=== PATIENT | female | born 1980 | race African-American/Black ===

== ENCOUNTER 2020-12-13 | Emergency (ER) | payer SELFPAY ==
[2020-12-13 15:06] LABS: HEMATOCRIT 42.3 % (37.0-47.0); HEMOGLOBIN 14.4 g/dl (12.0-16.0); IMMATURE GRANULOCYTES 0.4 % (0.0-5.0); MEAN CELL VOLUME 103.2 fL CALC (80.0-100.0); MEAN CORPUSCULAR HGB 35.1 pG CALC (26.0-32.0); NEUT# 2.74 thou/uL (2.00-7.15); RED BLOOD COUNT 4.1 mill/uL (4.20-5.60); RED CELL DISTRI WIDTH 13.9 % (11.5-15.5)
[2020-12-13 15:23] LABS: ALBUMIN 4.6 g/dL (3.2-5.0); ALKALINE PHOSPHATASE 60 u/l (38-126); ANION GAP 12 (6-22 (CALC)); BILIRUBIN, TOTAL 1.2 mg/dL (0.0-1.4); BUN 15 mg/dL (7-17); BUN/CREATININE RATIO 20 (12-20 (CALC)); CARBON DIOXIDE 26 mmol/l (22-30); CHLORIDE 97 mmol/l (95-108); CREATININE 0.7 mg/dL (0.5-1.0); GFR > 60 ML/MIN (>=60 (CALC)); GFR FOR AFR.AMER. > 60 ML/MIN (>=60 (CALC)); LIPASE 48 u/l (23-300); POTASSIUM 3.6 mmol/l (3.5-5.1); SGOT/AST 24 u/l (14-36); SODIUM 132 mmol/l (137-146); TOTAL PROTEIN 8.4 g/dL (6.3-8.2)
[2020-12-13] MEDS ORDERED: ZOFRAN4 MG/TAB PO (17:23)
[2020-12-13 17:46] LABS: URINE BLOOD DIPSTICK NEGATIVE (NEGATIVE); URINE COLOR YELLOW; URINE GLUCOSE - DIPSTICK NEGATIVE (NEGATIVE); URINE KETONE 15 mg/dL (NEGATIVE); URINE LEUK ESTERASE NEGATIVE (NEGATIVE); URINE PH 5.5 (4.5-8.0); URINE PROTEIN - DIPSTICK NEGATIVE (NEG-TRACE)
[2020-12-13 17:53] LABS: URINE BILIRUBIN - DIPSTICK SMALL (NEGATIVE); URINE NITRITE - DIPSTICK NEGATIVE (Negative)
== END 2020-12-13 18:10 | disposition home or self-care (01) | DRG 866 ==
DX: B34.9 Viral infection, unspecified (principal); F17.210 Nicotine dependence, cigarettes, uncomplicated; Z20.822 Contact with and (suspected) exposure to COVID-19
CPT/HCPCS: Q9967

== ENCOUNTER 2021-03-03 19:46 | Emergency (ER) | payer SELFPAY ==
[~2021-03-03] VITALS: Ht 170.2 cm; Wt 54.0 kg
[~2021-03-03 19:46] MED LIST: ZOFRAN4 MG/TAB PO
[2021-03-03 20:00] VITALS: BP 110/74
[2021-03-03 21:29] LABS: HEMATOCRIT 41.8 % (37.0-47.0); HEMOGLOBIN 14.2 g/dl (12.0-16.0); NEUT# 2.12 thou/uL (2.00-7.15); RED BLOOD COUNT 4.06 mill/uL (4.20-5.60); RED CELL DISTRI WIDTH 13.3 % (11.5-15.5)
[2021-03-03 21:30] LABS: URINE BILIRUBIN - DIPSTICK NEGATIVE (NEGATIVE); URINE BLOOD DIPSTICK NEGATIVE (NEGATIVE); URINE COLOR YELLOW; URINE GLUCOSE - DIPSTICK NEGATIVE (NEGATIVE); URINE KETONE NEGATIVE (NEGATIVE); URINE LEUK ESTERASE TRACE (NEGATIVE); URINE PH 5.5 (4.5-8.0); URINE PROTEIN - DIPSTICK NEGATIVE (NEG-TRACE); URINE UROBILINOGEN - DIPSTICK 0.2 E.U./dL (0.2)
[2021-03-03 21:32] LABS: URINE NITRITE - DIPSTICK NEGATIVE (Negative)
[2021-03-03 21:40] LABS: ALBUMIN 4.8 g/dL (3.2-5.0); ALKALINE PHOSPHATASE 62 u/l (38-126); ANION GAP 18 (6-22 (CALC)); BILIRUBIN, TOTAL 0.5 mg/dL (0.0-1.4); BUN 9 mg/dL (7-17); BUN/CREATININE RATIO 14 (12-20 (CALC)); CARBON DIOXIDE 22 mmol/l (22-30); CHLORIDE 103 mmol/l (95-108); CREATININE 0.6 mg/dL (0.5-1.0); GFR > 60 ML/MIN (>=60 (CALC)); GFR FOR AFR.AMER. > 60 ML/MIN (>=60 (CALC)); POTASSIUM 3.9 mmol/l (3.5-5.1); SGOT/AST 31 u/l (14-36); SODIUM 139 mmol/l (137-146); TOTAL PROTEIN 8.6 g/dL (6.3-8.2)
[2021-03-03] MEDS ORDERED: MOTRIN800 MG PO (21:47)
== END 2021-03-03 22:07 | disposition home or self-care (01) | DRG 601 ==
LOC: ED 19:46
DX: N63.25 Unspecified lump in the left breast, overlapping quadrants (principal); F41.9 Anxiety disorder, unspecified; I10 Essential (primary) hypertension; F31.9 Bipolar disorder, unspecified; F17.200 Nicotine dependence, unspecified, uncomplicated; Z87.820 Personal history of traumatic brain injury

== ENCOUNTER 2021-03-08 10:44 | Observation (INO) | payer SELFPAY ==
[~2021-03-08] VITALS: Ht 170.2 cm; Wt 60.0 kg
[~2021-03-08 10:44] MED LIST changes: +MOTRIN800 MG PO
--- NOTE | 2021-03-08 10:45 | NUR ---
PATEINT TO ROOM VIA WHEELCHAIR AND PHYSICIAN NOTIFIED OF PATIENT STATUS
--- NOTE | 2021-03-08 11:05 | NUR ---
PT MD GOLDIE AT BEDSIDE, DENIES ANY ADDITIONAL NEEDS
[2021-03-08 12:23] LABS: IMMATURE GRANULOCYTES 0.3 % (0.0-5.0); MEAN CELL VOLUME 100.4 fL CALC (80.0-100.0); MEAN CORPUSCULAR HGB 35.1 pG CALC (26.0-32.0); MEAN CORPUSCULAR HGB CONC 34.9 g/dL CAL (32.0-36.0); NEUT# 3.41 thou/uL (2.00-7.15); RED BLOOD COUNT 4.96 mill/uL (4.20-5.60); RED CELL DISTRI WIDTH 12.9 % (11.5-15.5)
[2021-03-08 12:26] LABS: ALBUMIN 5.6 g/dL (3.2-5.0); ALKALINE PHOSPHATASE 86 u/l (38-126); AMYLASE 128 u/l (30-110); BUN 14 mg/dL (7-17); BUN/CREATININE RATIO 14 (12-20 (CALC)); CARBON DIOXIDE 20 mmol/l (22-30); GFR > 60 ML/MIN (>=60 (CALC)); GFR FOR AFR.AMER. > 60 ML/MIN (>=60 (CALC)); LIPASE 51 u/l (23-300); POTASSIUM 3.9 mmol/l (3.5-5.1); SGOT/AST 40 u/l (14-36); SODIUM 133 mmol/l (137-146)
[2021-03-08 12:27] LABS: HEMATOCRIT 49.8 % (37.0-47.0); HEMOGLOBIN 17.4 g/dl (12.0-16.0)
[2021-03-08 12:35] LABS: ANION GAP 29 (6-22 (CALC)); BILIRUBIN, TOTAL 1.6 mg/dL (0.0-1.4); CHLORIDE 88 mmol/l (95-108)
[2021-03-08 12:37] LABS: TOTAL PROTEIN 11.2 g/dL (6.3-8.2)
[2021-03-08 12:38] LABS: MYOGLOBIN 69 ng/mL (0 - 62)
--- NOTE | 2021-03-08 13:30 | NUR ---
PT TO RADIOLOGY FOR CT
[2021-03-08 13:49] LABS: URINE BLOOD DIPSTICK NEGATIVE (NEGATIVE); URINE COLOR YELLOW; URINE GLUCOSE - DIPSTICK NEGATIVE (NEGATIVE); URINE KETONE >=80 mg/dL (NEGATIVE); URINE LEUK ESTERASE NEGATIVE (NEGATIVE); URINE PROTEIN - DIPSTICK 30 mg/dL (NEG-TRACE); URINE SPECIFIC GRAVITY >=1.030; URINE UROBILINOGEN - DIPSTICK 0.2 E.U./dL (0.2)
[2021-03-08 13:50] LABS: URINE BILIRUBIN - DIPSTICK NEGATIVE (NEGATIVE); URINE NITRITE - DIPSTICK NEGATIVE (Negative)
[2021-03-08 13:57] LABS: URINE RBC 0-2 RBC/hpf (0-5); URINE SQUAMOUS EPITHELIAL CELL FEW EPI/hpf (0-FEW); URINE WBC 0-2 WBC/hpf (0-5)
--- NOTE | 2021-03-08 14:40 | NUR ---
IV INFUSING, PT SLEEPING
--- NOTE | 2021-03-08 15:25 | NUR ---
LAB AT BEDSIDE TO DRAW 2ND LACTIC
--- NOTE | 2021-03-08 19:51 | NUR ---
REPORT TO H[facility]ILTON DRIVER/MED-SURG.
--- NOTE | 2021-03-08 19:51 | NUR ---
TELEPHONE REPORT RECEIVED FROM Ramandeep MOSCOSO IN ED. ROOM 288 PREPARED TO RECEIVE PT BY Irineo WALKER CNA.
--- NOTE | 2021-03-08 20:00 | NUR ---
TO FLOOR WITH NURSE VIA W/C. WITH POCKET MONITOR
--- NOTE | 2021-03-08 20:09 | NUR ---
PT ARRIVES TO UNIT VIA WC, ACCOMPANIED BY Jose Roberto AGUIRRE LPN. ADMITTED TO ROOM 288.
[2021-03-08 20:15] VITALS: BP 132/88
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
--- NOTE | 2021-03-08 20:50 | NUR ---
ORDER FOR PRN XANAX AND MORPHINE RECEIVED FROM DR. MEJIA FOR PT'S C/O ANXIETY AND PAIN. SEE WRITTEN PHYSICAINS ORDERS IN CHART.
--- NOTE | 2021-03-08 21:50 | NUR ---
NEITHER R-FA 22G IV OR L-AC 22G IV ABLE TO BE FLUSHED. BOTH IV'S D/C'D. CATHETERS INTACT. NEW IV STARTED TO R-FA, #22g x1 ATTEMPT.
--- NOTE | 2021-03-08 21:55 | NUR ---
PRN XANAX AND MORPHINE ADMINISTERED PER PT'S REQUEST FOR C/O PAIN AND ANXIETY. VERBAL EDUCATION PROVIDED PRIOR TO ADMINISTRATION. PT VERBALIZES UNDERSTANDING. SEE E-MAR.
--- NOTE | 2021-03-09 00:10 | NUR ---
Monique GAITAN DIRECTOR CLINICAL RESEARCH IN ROOM COLLECTING BLOOD SPECIMEN.
--- NOTE | 2021-03-09 00:23 | NUR ---
PT APPEARS TO BE SLEEPING COMFORTABLY, LAYING IN BED, EYES CLOSED, RESPIRATIONS REGULAR AND UNLABORED. NO APPARENT DISTRESS. CALL LOPES REMAINS WITHIN REACH.
--- NOTE | 2021-03-09 01:02 | NUR ---
TROPONIN RESULTS RECEIVED AND ASSESED. TROPONIN <0.012ng/ml.
[2021-03-09 04:00] VITALS: BP 136/92
--- NOTE | 2021-03-09 04:16 | NUR ---
CALL RECEIVED FROM Esther JUAREZ IN ED REPORTING APPARENT SLIGHT ST ELEVATION ON TELEMETRY. PT'S ASSESMENT UNCHANGED. PRESENTS WITH ANXIETY AND C/O PAIN TO UPPER TEETH, MID STERNUM, AND LOWER ABD-FLANK. VSS.
--- NOTE | 2021-03-09 04:21 | NUR ---
EKG ORDERED, Jessica RAE PEDIATRIC ASSOCIATE MADE AWARE.
[2021-03-09 04:25] VITALS: BP 127/89
--- NOTE | 2021-03-09 04:31 | NUR ---
Angelina LAWS BRADDER IN ROOM DOING EKG, Monique GAITAN EXTERMINATOR HELPER TERMITE IN ROOM COLLECTING LABS.
--- NOTE | 2021-03-09 04:55 | NUR ---
PRN XANAX AND PRN MORPHINE ADMINISTERED FOR C/O PAIN AND ANXIETY. SEE E-MAR.
--- NOTE | 2021-03-09 05:07 | NUR ---
EKG REVIEWED BY DR. WIN, PER DR. WIN SLIGHT J POINT ELEVATION NOTED ON EKG. NO ST ELEVATION. NO FURTHER INTERVENTION NEEDED.
[2021-03-09 05:10] LABS: CHOLESTEROL HDL RATIO 3.4 (<4.4 (CALC)); MAGNESIUM 1.8 mg/dL (1.6-2.3)
--- NOTE | 2021-03-09 05:50 | NUR ---
TROPONIN RESULTS RECEIVED AND ASSESED. TROPONIN <0.012ng/ml.
[2021-03-09 07:15] VITALS: BP 106/71
--- NOTE | 2021-03-09 07:15 | NUR ---
PATIENT RESTING IN BED AT THIS TIME DENIES ANY NEEDS OR PAIN. RECORD PRESS SUPERVISOR DONE SEE INTERVENTIONS. LUNG LAUGHLIN ARE CLEAR. PATIENT STATED LAST BM WAS APPROX. 2 WEEKS BUT STATES "IT COULD HAVE BEEN SOONER THAN THAT" BOWEL SOUNDS PRESENT AND ACTIVE IN ALL FOUR QUADRANTS. PATIENT CALM AT THIS TIME AND STATES SHE HAS HAD "A LOT ON HER PLATE LATELY DUE TO HER COUSIN DYING". TELE MONITOR IN PLACE AND BEING MONITORED BY ED. SIDERAIL ARE UP CALL LIGHT WITHIN REACH.
[2021-03-09] MEDS ORDERED: ALPRAZOLAM1 MG PO ×2 (10:19→10:54)
[2021-03-09 10:36] VITALS: BP 100/61
--- NOTE | 2021-03-09 11:05 | NUR ---
PATIENT D/C AT THIS TIME. WHILE GOING OVER PATIENTS D/C PATIENT BECAME UPSET AND STARTED SHOUTING AT THIS NURSE STATING SHE DIDN'T WANT TO GO STATED SHE WANTED FOOD AND PATIENT WAS TOLD LUNCH WAS HERE AND SHE COULD EAT HER LUNCH AND WHEN FAMILY COMES WE WILL WHEEL HER DOWN. PATEINT CONTINUED TO SCREAM THAT "NOBODY GIVES A FUCK ABOUT HER" SHE CONTINUED TO RANT AND PATIENT WAS GIVEN XANAX SCHEDULED. PATIENT SIGNED D/C PAPERWORK AND STATED SHE UNDERSTOOD. FAMILY MEMEBER ON PHONE AND IT WAS EXPLAINED TO HIM THAT SHE WAS D/C AND HE STATED HE WOULD BE THERE TO PICK HER UP. PATIENT WAS GIVEN LUNCH TRAY AT THIS TIME.
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
== END 2021-03-09 11:28 | disposition home or self-care (01) | DRG 313 ==
LOC: ED 10:44 → ED-I 15:55 → ED 16:05 → MS2 16:06
PROVIDERS: Emergency Medicine; ADMIT Internal Medicine; ATTEND Internal Medicine
DX: R07.89 Other chest pain (principal); F41.9 Anxiety disorder, unspecified; R00.2 Palpitations; E86.0 Dehydration; I10 Essential (primary) hypertension; F31.9 Bipolar disorder, unspecified; Z63.4 Disappearance and death of family member; Z20.822 Contact with and (suspected) exposure to COVID-19
CPT/HCPCS: G0378; J2060; Q9967; S0164

== ENCOUNTER 2021-05-10 09:28 | Observation (INO) | payer SELFPAY ==
[~2021-05-10] VITALS: Ht 170.2 cm; Wt 54.0 kg
[~2021-05-10 09:28] MED LIST changes: +ALPRAZOLAM1 MG PO
[2021-05-10 10:18] LABS: MEAN CELL VOLUME 104.6 fL CALC (80.0-100.0); MEAN CORPUSCULAR HGB 36.2 pG CALC (26.0-32.0); MEAN CORPUSCULAR HGB CONC 34.6 g/dL CAL (32.0-36.0); NEUT# 2.96 thou/uL (2.00-7.15); RED BLOOD COUNT 3.48 mill/uL (4.20-5.60); RED CELL DISTRI WIDTH 12.5 % (11.5-15.5)
[2021-05-10 10:38] LABS: HEMATOCRIT 36.4 % (37.0-47.0); HEMOGLOBIN 12.6 g/dl (12.0-16.0)
[2021-05-10 10:42] LABS: AMYLASE 51 u/l (30-110); BUN 13 mg/dL (7-17); BUN/CREATININE RATIO 24 (12-20 (CALC)); CARBON DIOXIDE 18 mmol/l (22-30); CREATININE 0.5 mg/dL (0.5-1.0); ETHYL ALCOHOL 0 mg/dl (0-30); GFR > 60 ML/MIN (>=60 (CALC)); GFR FOR AFR.AMER. > 60 ML/MIN (>=60 (CALC)); LIPASE 30 u/l (23-300); SGOT/AST 28 u/l (14-36); SODIUM 135 mmol/l (137-146)
[2021-05-10 10:43] LABS: ALBUMIN 3.4 g/dL (3.2-5.0); ALKALINE PHOSPHATASE 42 u/l (38-126); ANION GAP 12 (6-22 (CALC)); BILIRUBIN, TOTAL 0.5 mg/dL (0.0-1.4); CHLORIDE 108 mmol/l (95-108); POTASSIUM 2.5 mmol/l (3.5-5.1); TOTAL PROTEIN 6.4 g/dL (6.3-8.2)
[2021-05-10 14:15] LABS: URINE BILIRUBIN - DIPSTICK NEGATIVE (NEGATIVE); URINE BLOOD DIPSTICK NEGATIVE (NEGATIVE); URINE COLOR YELLOW; URINE GLUCOSE - DIPSTICK NEGATIVE (NEGATIVE); URINE KETONE 40 mg/dL (NEGATIVE); URINE LEUK ESTERASE NEGATIVE (NEGATIVE); URINE PROTEIN - DIPSTICK NEGATIVE (NEG-TRACE); URINE UROBILINOGEN - DIPSTICK 0.2 E.U./dL (0.2)
[2021-05-10 14:18] LABS: URINE NITRITE - DIPSTICK NEGATIVE (Negative)
[2021-05-10 20:46] VITALS: BP 122/86
[2021-05-10] MEDS ORDERED: PAXIL40 MG PO (20:47)
[2021-05-10] MEDS ORDERED: LISINOPRIL5 MG PO (20:48)
[2021-05-11] VITALS: BP 122/80
[2021-05-11 04:00] VITALS: BP 103/71
[2021-05-11 05:23] LABS: HEMATOCRIT 36.5 % (37.0-47.0); HEMOGLOBIN 12.7 g/dl (12.0-16.0); MEAN CELL VOLUME 103.7 fL CALC (80.0-100.0); MEAN CORPUSCULAR HGB 36.1 pG CALC (26.0-32.0); MEAN CORPUSCULAR HGB CONC 34.8 g/dL CAL (32.0-36.0); RED BLOOD COUNT 3.52 mill/uL (4.20-5.60); RED CELL DISTRI WIDTH 12.3 % (11.5-15.5)
[2021-05-11 06:15] LABS: BUN 14 mg/dL (7-17); BUN/CREATININE RATIO 20 (12-20 (CALC)); CALCULATED LDLCHOLESTEROL 114 mg/dL (62-129 (CALC)); CHLORIDE 96 mmol/l (95-108); CHOLESTEROL HDL RATIO 4.4 (<4.4 (CALC)); CREATININE 0.7 mg/dL (0.5-1.0); GFR > 60 ML/MIN (>=60 (CALC)); GFR FOR AFR.AMER. > 60 ML/MIN (>=60 (CALC)); HDL CHOLESTEROL 39 mg/dL (>=40); MAGNESIUM 1.6 mg/dL (1.6-2.3); SODIUM 132 mmol/l (137-146); TOTAL CHOLESTEROL 169 mg/dl (0-199); TOTAL TRIGLYCERIDES 79 mg/dl (30-149); VLDL CHOLESTROL 16 mg/dl (1-41 (CALC))
[2021-05-11 06:16] LABS: ANION GAP 14 (6-22 (CALC)); CARBON DIOXIDE 26 mmol/l (22-30); POTASSIUM 3.5 mmol/l (3.5-5.1)
[2021-05-11 08:06] VITALS: BP 109/74
[2021-05-11 11:06] VITALS: BP 138/87
[2021-05-11] MEDS ORDERED: ZOFRAN4 MG/TAB PO (12:18)
[2021-05-11] MEDS ORDERED: XANAX0.25 MG PO (12:18)
[2021-05-11] MEDS ORDERED: PROTONIX40 M2 PO (12:19)
== END 2021-05-11 13:42 | disposition home or self-care (01) | DRG 313 ==
LOC: ED 09:28 → ED-I 16:10 → ED 16:11 → MS2 21:03
PROVIDERS: ADMIT Hospitalist; ATTEND Hospitalist
PROC: 3E0234Z Introduction of Serum, Toxoid and Vaccine into Muscle, Percutaneous Approach (ICD-10-PCS; principal; 2021-05-11)
DX: R07.9 Chest pain, unspecified (principal); R00.2 Palpitations; E87.6 Hypokalemia; E83.51 Hypocalcemia; E86.0 Dehydration; I10 Essential (primary) hypertension; F31.9 Bipolar disorder, unspecified; F41.9 Anxiety disorder, unspecified; N63.20 Unspecified lump in the left breast, unspecified quadrant; F17.210 Nicotine dependence, cigarettes, uncomplicated; Z23 Encounter for immunization; Z87.820 Personal history of traumatic brain injury; Z20.822 Contact with and (suspected) exposure to COVID-19
CPT/HCPCS: G0378; J1650; J2060; Q9967; S0164

== ENCOUNTER 2021-07-01 00:21 | Observation (INO) | payer SELFPAY ==
[~2021-07-01] VITALS: Ht 170.2 cm; Wt 61.0 kg
[~2021-07-01 00:21] MED LIST changes: +LISINOPRIL5 MG PO; +PAXIL40 MG PO; +PROTONIX40 M2 PO; +XANAX0.25 MG PO
[2021-07-01 01:14] LABS: HEMATOCRIT 35.6 % (37.0-47.0); HEMOGLOBIN 12.2 g/dl (12.0-16.0); IMMATURE GRANULOCYTES 0.3 % (0.0-5.0); MEAN CORPUSCULAR HGB 36.3 pG CALC (26.0-32.0); MEAN CORPUSCULAR HGB CONC 34.3 g/dL CAL (32.0-36.0); NEUT# 2.48 thou/uL (2.00-7.15); RED BLOOD COUNT 3.36 mill/uL (4.20-5.60); RED CELL DISTRI WIDTH 12.9 % (11.5-15.5)
[2021-07-01 01:33] LABS: ANION GAP 15 (6-22 (CALC)); BILIRUBIN, TOTAL 0.7 mg/dL (0.0-1.4); BUN 11 mg/dL (7-17); BUN/CREATININE RATIO 13 (12-20 (CALC)); CARBON DIOXIDE 21 mmol/l (22-30); CHLORIDE 101 mmol/l (95-108); CREATININE 0.8 mg/dL (0.5-1.0); ETHYL ALCOHOL 0 mg/dl (0-30); GFR > 60 ML/MIN (>=60 (CALC)); GFR FOR AFR.AMER. > 60 ML/MIN (>=60 (CALC)); POTASSIUM 3.2 mmol/l (3.5-5.1); SGOT/AST 29 u/l (14-36); SODIUM 134 mmol/l (137-146)
[2021-07-01 01:35] LABS: ACT PARTIAL THROMBO TIME 26.2 SECONDS (20.0-32.5); ALBUMIN 4.8 g/dL (3.2-5.0); ALKALINE PHOSPHATASE 64 u/l (38-126); INTERNATIONAL NORMALIZED RATIO 0.9 RATIO (0.7-1.3); PROTHROMBIN TIME 9.8 SECONDS (9.0-12.5); TOTAL PROTEIN 8.8 g/dL (6.3-8.2)
[2021-07-01 01:45] LABS: MYOGLOBIN 45 ng/mL (0 - 62)
[2021-07-01 01:53] LABS: URINE BILIRUBIN - DIPSTICK NEGATIVE (NEGATIVE); URINE BLOOD DIPSTICK NEGATIVE (NEGATIVE); URINE COLOR YELLOW; URINE GLUCOSE - DIPSTICK NEGATIVE (NEGATIVE); URINE KETONE TRACE mg/dL (NEGATIVE); URINE PROTEIN - DIPSTICK NEGATIVE (NEG-TRACE); URINE UROBILINOGEN - DIPSTICK 0.2 E.U./dL (0.2)
[2021-07-01 01:54] LABS: URINE LEUK ESTERASE SMALL (NEGATIVE); URINE NITRITE - DIPSTICK NEGATIVE (Negative)
[2021-07-01 02:04] LABS: URINE BACTERIA FEW hpf; URINE MUCUS FEW hpf (NONE-FEW); URINE SQUAMOUS EPITHELIAL CELL FEW EPI/hpf (0-FEW)
[2021-07-01] MEDS ORDERED: XANAX0.5 MG PO ×2 (02:58→13:54)
[2021-07-01 03:07] VITALS: BP 143/70
[2021-07-01 07:00] VITALS: BP 120/72
[2021-07-01 11:20] VITALS: BP 146/76
[2021-07-01] MEDS ORDERED: PAXIL40 MG PO (13:54)
[2021-07-01 15:15] VITALS: BP 137/82
== END 2021-07-01 16:14 | disposition home or self-care (01) | DRG 92 ==
LOC: ED 00:21 → ED-I 01:26 → ED 02:09 → MS2 02:10
PROVIDERS: Family Medicine; ADMIT Hospitalist; ATTEND Hospitalist
DX: R20.0 Anesthesia of skin (principal); E87.1 Hypo-osmolality and hyponatremia; R47.1 Dysarthria and anarthria; F41.9 Anxiety disorder, unspecified; I10 Essential (primary) hypertension; F31.9 Bipolar disorder, unspecified; F17.200 Nicotine dependence, unspecified, uncomplicated; T43.226A Underdosing of selective serotonin reuptake inhibitors, initial encounter; T42.4X6A Underdosing of benzodiazepines, initial encounter; Z91.128 Patient's intentional underdosing of medication regimen for other reason; Z87.820 Personal history of traumatic brain injury; Z20.822 Contact with and (suspected) exposure to COVID-19
CPT/HCPCS: G0378; J1650

== ENCOUNTER 2021-12-25 07:49 | Emergency (ER) | payer SELFPAY ==
[~2021-12-25] VITALS: Ht 170.2 cm; Wt 65.9 kg
[~2021-12-25 07:49] MED LIST changes: +XANAX0.5 MG PO
[2021-12-25 08:36] LABS: URINE BLOOD DIPSTICK LARGE (NEGATIVE); URINE COLOR YELLOW; URINE GLUCOSE - DIPSTICK NEGATIVE (NEGATIVE); URINE KETONE 40 mg/dL (NEGATIVE); URINE LEUK ESTERASE TRACE (NEGATIVE); URINE PROTEIN - DIPSTICK TRACE mg/dL (NEG-TRACE); URINE SPECIFIC GRAVITY >=1.030; URINE UROBILINOGEN - DIPSTICK 0.2 E.U./dL (0.2)
[2021-12-25 08:39] LABS: ALBUMIN 4.5 g/dL (3.2-5.0); ALKALINE PHOSPHATASE 64 u/l (38-126); ANION GAP 12 (6-22 (CALC)); BILIRUBIN, TOTAL 0.9 mg/dL (0.0-1.4); BUN 8 mg/dL (7-17); BUN/CREATININE RATIO 12 (12-20 (CALC)); CARBON DIOXIDE 25 mmol/l (22-30); CHLORIDE 99 mmol/l (95-108); CREATININE 0.7 mg/dL (0.5-1.0); GFR > 60 ML/MIN (>=60 (CALC)); GFR FOR AFR.AMER. > 60 ML/MIN (>=60 (CALC)); LIPASE 36 u/l (23-300); POTASSIUM 3.2 mmol/l (3.5-5.1); SGOT/AST 36 u/l (14-36); SODIUM 132 mmol/l (137-146); TOTAL PROTEIN 8.2 g/dL (6.3-8.2)
[2021-12-25 08:51] LABS: URINE BILIRUBIN - DIPSTICK MODERATE (NEGATIVE); URINE NITRITE - DIPSTICK NEGATIVE (Negative)
[2021-12-25 08:54] LABS: URINE WBC 0-2 WBC/hpf (0-5)
[2021-12-25 08:55] LABS: URINE SQUAMOUS EPITHELIAL CELL MANY EPI/hpf (0-FEW)
[2021-12-25 08:56] LABS: BETA-HCG, QUANT(RESULT NUMBER) <2 mIU/mL
[2021-12-25 09:00] LABS: HEMATOCRIT 39.1 % (37.0-47.0); HEMOGLOBIN 13.5 g/dl (12.0-16.0); IMMATURE GRANULOCYTES 0.3 % (0.0-5.0); MEAN CELL VOLUME 105.1 fL CALC (80.0-100.0); MEAN CORPUSCULAR HGB 36.3 pG CALC (26.0-32.0); MEAN CORPUSCULAR HGB CONC 34.5 g/dL CAL (32.0-36.0); NEUT# 2.15 thou/uL (2.00-7.15); RED BLOOD COUNT 3.72 mill/uL (4.20-5.60); RED CELL DISTRI WIDTH 12.8 % (11.5-15.5)
[2021-12-25] MEDS ORDERED: NAPROXEN EC500 MG PO (09:52)
[2021-12-25 10:06] VITALS: BP 124/86
[2021-12-25] MEDS ORDERED: ZOFRAN4 MG/TAB PO (10:13)
[2021-12-25] MEDS ORDERED: ZESTRIL5 M1 PO (10:16)
[2021-12-25] MEDS ORDERED: LISINOP/HCTZ1 TAB PO (10:16)
== END 2021-12-25 10:11 | disposition home or self-care (01) | DRG 761 ==
LOC: ED 07:49
DX: N94.6 Dysmenorrhea, unspecified (principal); E87.6 Hypokalemia; D25.9 Leiomyoma of uterus, unspecified; I10 Essential (primary) hypertension; F31.9 Bipolar disorder, unspecified; F41.9 Anxiety disorder, unspecified; F17.200 Nicotine dependence, unspecified, uncomplicated

== ENCOUNTER 2022-03-23 15:00 | Emergency (ER) | payer SELFPAY ==
[2022-03-23] VITALS (8 sets, daily range): BP systolic 109–166; BP diastolic 59–113
[~2022-03-23] VITALS: Ht 170.2 cm; Wt 56.9 kg
[~2022-03-23 15:00] MED LIST changes: +LISINOP/HCTZ1 TAB PO; +NAPROXEN EC500 MG PO; +ZESTRIL5 M1 PO
[2022-03-23] MEDS ORDERED: ALPRAZOLAM1 MG PO (15:54)
[2022-03-23 15:55] LABS: HEMATOCRIT 38.5 % (37.0-47.0); HEMOGLOBIN 13.4 g/dl (12.0-16.0); MEAN CELL VOLUME 104.9 fL CALC (80.0-100.0); MEAN CORPUSCULAR HGB 36.5 pG CALC (26.0-32.0); MEAN CORPUSCULAR HGB CONC 34.8 g/dL CAL (32.0-36.0); NEUT# 1.74 thou/uL (2.00-7.15); RED BLOOD COUNT 3.67 mill/uL (4.20-5.60)
[2022-03-23 16:12] LABS: URINE BLOOD DIPSTICK LARGE (NEGATIVE); URINE GLUCOSE - DIPSTICK NEGATIVE (NEGATIVE); URINE KETONE TRACE mg/dL (NEGATIVE); URINE LEUK ESTERASE NEGATIVE (NEGATIVE); URINE PH 5.5 (4.5-8.0); URINE PROTEIN - DIPSTICK 30 mg/dL (NEG-TRACE); URINE SPECIFIC GRAVITY >=1.030
[2022-03-23 16:16] LABS: URINE BILIRUBIN - DIPSTICK MODERATE (NEGATIVE); URINE COLOR AMBER; URINE NITRITE - DIPSTICK NEGATIVE (Negative)
[2022-03-23 16:18] LABS: ALBUMIN 4.3 g/dL (3.2-5.0); ALKALINE PHOSPHATASE 51 u/l (38-126); ANION GAP 10 (6-22 (CALC)); BILIRUBIN, TOTAL 0.7 mg/dL (0.0-1.4); BUN 8 mg/dL (7-17); BUN/CREATININE RATIO 10 (12-20 (CALC)); CARBON DIOXIDE 25 mmol/l (22-30); CHLORIDE 102 mmol/l (95-108); CREATININE 0.8 mg/dL (0.5-1.0); GFR FOR AFR.AMER. > 60 ML/MIN (>=60 (CALC)); GFR OTHER RACES > 60 ML/MIN (>=60 (CALC)); LIPASE 39 u/l (23-300); POTASSIUM 3.2 mmol/l (3.5-5.1); SGOT/AST 24 u/l (14-36); SODIUM 133 mmol/l (137-146); TOTAL PROTEIN 7.6 g/dL (6.3-8.2)
[2022-03-23 16:21] LABS: URINE RBC 50-100 RBC/hpf (0-5); URINE SQUAMOUS EPITHELIAL CELL MODERATE EPI/hpf (0-FEW)
[2022-03-23] MEDS ORDERED: TRAMADOL HYDROC50 M1 PO (18:54)
== END 2022-03-23 19:13 | disposition home or self-care (01) | DRG 392 ==
LOC: ED 15:00
PROVIDERS: Family Medicine
DX: R10.30 Lower abdominal pain, unspecified (principal); N83.201 Unspecified ovarian cyst, right side; D25.9 Leiomyoma of uterus, unspecified; I10 Essential (primary) hypertension; F31.9 Bipolar disorder, unspecified; F41.9 Anxiety disorder, unspecified; F17.200 Nicotine dependence, unspecified, uncomplicated
CPT/HCPCS: Q9967

== ENCOUNTER 2024-04-17 18:31 | Emergency (ER) | payer OTHER, MEDICAID ==
[~2024-04-17] VITALS: Ht 170.2 cm; Wt 65.0 kg
[~2024-04-17 18:31] MED LIST changes: +TRAMADOL HYDROC50 M1 PO
[2024-04-17 18:42] VITALS: BP 134/89
[2024-04-17 18:46] VITALS: BP 140/86
[2024-04-17] MEDS ORDERED: BACTRIM DS1 TAB PO ×2 (18:53→19:36)
[2024-04-17] MEDS ORDERED: PREDNISONE20 MG PO ×2 (18:53→19:36)
[2024-04-17] MEDS ORDERED: MUPIROCIN2 % EX ×2 (18:53→19:36)
[2024-04-17 19:00] VITALS: BP 119/76
[2024-04-17 19:15] VITALS: BP 132/81
[2024-04-17 19:30] VITALS: BP 130/87
[2024-04-17 19:35] VITALS: BP 130/87
== END 2024-04-17 19:35 | disposition home or self-care (01) | DRG 603 ==
LOC: ED 18:31
DX: L03.114 Cellulitis of left upper limb (principal); R21 Rash and other nonspecific skin eruption; I10 Essential (primary) hypertension; F41.9 Anxiety disorder, unspecified; F31.9 Bipolar disorder, unspecified; Z72.0 Tobacco use

== ENCOUNTER 2024-10-02 14:48 | Emergency (ER) | payer OTHER, MEDICAID ==
[~2024-10-02] VITALS: Ht 170.2 cm; Wt 64.4 kg
[~2024-10-02 14:48] MED LIST changes: +BACTRIM DS1 TAB PO; +MUPIROCIN2 % EX; +PREDNISONE20 MG PO
[2024-10-02 16:08] VITALS: BP 138/80
[2024-10-02] MEDS ORDERED: HYDROCORTISONE2.5 % EX (16:32)
[2024-10-02] MEDS ORDERED: TRAMADOL HYDROC50 M1 PO (16:32)
[2024-10-02] MEDS ORDERED: BACTRIM DS1 TAB PO (16:32)
[2024-10-02] MEDS ORDERED: PREDNISONE10 MG PO (16:32)
== END 2024-10-02 16:55 | disposition home or self-care (01) | DRG 607 ==
LOC: ED 14:48
DX: L40.1 Generalized pustular psoriasis (principal); B95.62 Methicillin resistant Staphylococcus aureus infection as the cause of diseases classified elsewhere; I10 Essential (primary) hypertension; F41.9 Anxiety disorder, unspecified; F31.9 Bipolar disorder, unspecified